=== PATIENT | female | born 1990 | race Caucasian/White ===

== ENCOUNTER 2017-06-30 01:41 | Day surgery (SDC) | payer BC ==
[~2017-06-30] VITALS: Ht 172.7 cm; Wt 79.4 kg
--- NOTE | 2017-06-30 01:46 | ER Report ---
History and Physical Time Seen By MD: 01:44 HPI/ROS CHIEF COMPLAINT: Abdominal pain HISTORY OF PRESENT ILLNESS: 26-year-old female presents ambulatory to the ER complaining of abdominal pain. Patient notes an episode of diarrhea, then she developed kind of migratory abdominal pain. She states it settled in the back in the right lower quadrant. Patient reports one episode of vomiting earlier yesterday. She's had nausea. She's had no fever or chills. She denies dysuria , frequency or hematuria. Patient has an IUD. Her past surgical history is significant for and a thumb repair. REVIEW OF SYSTEMS: Respiratory: No cough, no dyspnea. Cardiovascular: No chest pain, no palpitations. Gastrointestinal: As above Musculoskeletal: No back pain. Allergies: Coded Allergies: No Known Drug Allergies (Unverified , 06/30/17) Home Meds Active Scripts Hydrocodone Bit/Acetaminophen (NORCO 5-325 TABLET) 1 Each Tablet, 1-2 EACH PO Q4 -6H Y for PAIN, #30 TAB Prov:TONIE CHERRY MD 06/30/17 Reviewed Nurses Notes: Yes Old Medical Records Reviewed: Yes Constitutional Vital Sign - Last 24 Hours 06/30/17 06/30/17 06/30/17 06/30/17 01:48 01:48 02:11 02:26 Temp 97.9 Pulse 98 78 84 Resp 20 B/P (MAP) 133/76 133/76 (95) Pulse Ox 98 99 95 O2 Delivery Room Air 06/30/17 06/30/17 06/30/17 06/30/17 02:41 02:54 02:56 03:00 Pulse 102 98 B/P (MAP) 98/89 (92) 111/73 (86) Pulse Ox 97 97 06/30/17 06/30/17 06/30/17 06/30/17 03:05 03:20 03:30 03:35 Pulse 100 89 96 B/P (MAP) 116/74 (88) Pulse Ox 95 95 98 06/30/17 06/30/17 06/30/17 03:50 04:00 04:05 Pulse 97 98 B/P (MAP) 116/74 (88) Pulse Ox 97 97 Physical Exam General Appearance: The patient is alert, has no immediate need for airway protection and no current signs of toxicity. Vital signs stable, moderate distress Eyes: Pupils equal and round no injection. Respiratory: Chest is non tender, lungs are clear to auscultation. Cardiac: regular rate and rhythm Gastrointestinal: Abdomen is soft, moderate right lower quadrant tenderness with guarding and trace rebound, no masses, bowel sounds normal. Musculoskeletal: Neck: Neck is supple and non tender. Extremities have full range of motion and are non tender. Skin: No rashes or lesions. [DIFFERENTIAL DIAGNOSIS: After history and physical exam differential diagnosis was considered for] [ ] Medical Decision Making Data Points Result Diagram: 06/30/17 0155 06/30/17 0155 Laboratory Hematology Test 06/30/17 01:45 06/30/17 01:55 Urine Color Straw Urine Clarity Clear Urine pH 5.0 pH (4.8-9.5) Urine Specific Conroy 1.006 Urine Protein Negative mg/dL (NEGATIVE) Urine Glucose (UA) Negative mg/dL (NEGATIVE) Urine Ketones Negative mg/dL (NEGATIVE) Urine Blood Negative (NEGATIVE) Urine Nitrite Negative (NEGATIVE) Urine Bilirubin Negative (NEGATIVE) Urine Urobilinogen Negative mg/dL (0.2-1.9) Urine Leukocyte Esterase Negative (NEGATIVE) Urine RBC None /HPF (0-2/HPF) Urine WBC None /HPF (0-5/HPF) Urine Squamous Epithelial Cells Moderate /LPF (</=FEW) Urine Bacteria Negative /HPF (NONE-FEW) Urine Mucus None /HPF (NONE-FEW) Red Blood Count 5.00 M/uL (4.17-5.56) Mean Corpuscular Volume 86.6 fL (80.0-96.0) Mean Corpuscular Hemoglobin 30.1 pg (26.0-33.0) Mean Corpuscular Hemoglobin Concent 34.7 g/dL (32.0-36.0) Red Cell Distribution Width 13.3 % (11.5-14.5) Mean Platelet Volume 8.2 fL (7.2-11.1) Neutrophils (%) (Auto) 80.9 % (39.4-72.5) Lymphocytes (%) (Auto) 9.9 % (17.6-49.6) Monocytes (%) (Auto) 8.0 % (4.1-12.4) Eosinophils (%) (Auto) 0.8 % (0.4-6.7) Basophils (%) (Auto) 0.4 % (0.3-1.4) Nucleated RBC Relative Count (auto) 0.2 /100WBC Neutrophils # (Auto) 13.1 K/uL (2.0-7.4) Lymphocytes # (Auto) 1.6 K/uL (1.3-3.6) Monocytes # (Auto) 1.3 K/uL (0.3-1.0) Eosinophils # (Auto) 0.1 K/uL (0.0-0.5) Basophils # (Auto) 0.1 K/uL (0.0-0.1) Nucleated RBC Absolute Count (auto) 0.03 K/uL Sodium Level 139 mmol/L (137-145) Potassium Level 3.3 mmol/L (3.5-5.0) Chloride Level 102 mmol/L (98-107) Carbon Dioxide Level 22 mmol/L (22-31) Blood Urea Nitrogen 10 mg/dl (7-18) Creatinine 0.70 mg/dl (0.52-1.04) Glomerular Filtration Rate Calc > 60.0 Random Glucose 101 mg/dl (75-110) Calcium Level 9.1 mg/dl (8.4-10.2) Total Bilirubin 0.5 mg/dl (0.2-1.3) Aspartate Amino Transf (AST/SGOT) 23 U/L (0-35) Alanine Aminotransferase (ALT/SGPT) 49 U/L (0-56) Alkaline Phosphatase 93 U/L (0-126) Total Protein 7.6 gm/dl (6.3-8.2) Albumin 4.1 g/dl (3.5-5.0) Amylase Level 112 U/L (0-110) Lipase 53 U/L (23-300) Human Chorionic Gonadotropin, Qual Negative (NEGATIVE) Chemistry Test 06/30/17 01:45 06/30/17 01:55 Urine Color Straw Urine Clarity Clear Urine pH 5.0 pH (4.8-9.5) Urine Specific Conroy 1.006 Urine Protein Negative mg/dL (NEGATIVE) Urine Glucose (UA) Negative mg/dL (NEGATIVE) Urine Ketones Negative mg/dL (NEGATIVE) Urine Blood Negative (NEGATIVE) Urine Nitrite Negative (NEGATIVE) Urine Bilirubin Negative (NEGATIVE) Urine Urobilinogen Negative mg/dL (0.2-1.9) Urine Leukocyte Esterase Negative (NEGATIVE) Urine RBC None /HPF (0-2/HPF) Urine WBC None /HPF (0-5/HPF) Urine Squamous Epithelial Cells Moderate /LPF (</=FEW) Urine Bacteria Negative /HPF (NONE-FEW) Urine Mucus None /HPF (NONE-FEW) White Blood Count 16.1 k/uL (4.5-11.0) Red Blood Count 5.00 M/uL (4.17-5.56) Hemoglobin 15.0 g/dL (12.0-16.0) Hematocrit 43.3 % (34.0-47.0) Mean Corpuscular Volume 86.6 fL (80.0-96.0) Mean Corpuscular Hemoglobin 30.1 pg (26.0-33.0) Mean Corpuscular Hemoglobin Concent 34.7 g/dL (32.0-36.0) Red Cell Distribution Width 13.3 % (11.5-14.5) Platelet Count 255 K/uL (150-450) Mean Platelet Volume 8.2 fL (7.2-11.1) Neutrophils (%) (Auto) 80.9 % (39.4-72.5) Lymphocytes (%) (Auto) 9.9 % (17.6-49.6) Monocytes (%) (Auto) 8.0 % (4.1-12.4) Eosinophils (%) (Auto) 0.8 % (0.4-6.7) Basophils (%) (Auto) 0.4 % (0.3-1.4) Nucleated RBC Relative Count (auto) 0.2 /100WBC Neutrophils # (Auto) 13.1 K/uL (2.0-7.4) Lymphocytes # (Auto) 1.6 K/uL (1.3-3.6) Monocytes # (Auto) 1.3 K/uL (0.3-1.0) Eosinophils # (Auto) 0.1 K/uL (0.0-0.5) Basophils # (Auto) 0.1 K/uL (0.0-0.1) Nucleated RBC Absolute Count (auto) 0.03 K/uL Glomerular Filtration Rate Calc > 60.0 Calcium Level 9.1 mg/dl (8.4-10.2) Total Bilirubin 0.5 mg/dl (0.2-1.3) Aspartate Amino Transf (AST/SGOT) 23 U/L (0-35) Alanine Aminotransferase (ALT/SGPT) 49 U/L (0-56) Alkaline Phosphatase 93 U/L (0-126) Total Protein 7.6 gm/dl (6.3-8.2) Albumin 4.1 g/dl (3.5-5.0) Amylase Level 112 U/L (0-110) Lipase 53 U/L (23-300) Human Chorionic Gonadotropin, Qual Negative (NEGATIVE) Urinalysis Test 06/30/17 01:45 Urine Color Straw Urine Clarity Clear Urine pH 5.0 pH (4.8-9.5) Urine Specific Conroy 1.006 Urine Protein Negative mg/dL (NEGATIVE) Urine Glucose (UA) Negative mg/dL (NEGATIVE) Urine Ketones Negative mg/dL (NEGATIVE) Urine Blood Negative (NEGATIVE) Urine Nitrite Negative (NEGATIVE) Urine Bilirubin Negative (NEGATIVE) Urine Urobilinogen Negative mg/dL (0.2-1.9) Urine Leukocyte Esterase Negative (NEGATIVE) Urine RBC None /HPF (0-2/HPF) Urine WBC None /HPF (0-5/HPF) Urine Squamous Epithelial Cells Moderate /LPF (</=FEW) Urine Bacteria Negative /HPF (NONE-FEW) Urine Mucus None /HPF (NONE-FEW) EKG/Imaging Imaging Results: CT scan of the abdomen and pelvis with IV contrast was obtained. The results of the study are COMPUTED TOMOGRAPHY ABDOMEN AND PELVIS WITH INTRAVENOUS CONTRAST DATE OF EXAM: 06/30/2017 2:27 AM INDICATION: Abdominal pain and elevated white blood cells. Rule out appendicitis.. COMPARISON: None. TECHNIQUE: Contrast enhanced abdomen and pelvis CT performed during the injection of 75 ml of Isovue 370. Sagittal and coronal reconstructions were performed. One of the following dose optimization techniques was utilized in the performance of this exam: Automated exposure control; adjustment of the mA and/or kV according to the patient's size; or use of an iterative reconstruction technique. Specific details can be referenced in the facility's radiology CT exam operational policy. FINDINGS: Lung bases: Minimal atelectasis. Liver and hepatic vasculature: Normal. Gallbladder and bile ducts: Normal. Spleen: Normal. Pancreas: Normal. Adrenals: Normal. Kidneys, ureters and bladder: Normal. Retroperitoneum and aorta: Normal caliber aorta. No adenopathy. GI tract, mesentery and peritoneum: The appendix is mildly dilated and inflamed , measuring 8 mm in diameter. It contains multiple appendicoliths. There is minimal adjacent inflammatory change. No evidence of obstruction in the remainder of the bowel. No pneumatosis or pneumoperitoneum. Trace free fluid in the pelvis may be reactive or physiologic. Uterus and adnexa: IUD in place, otherwise unremarkable. Bones and soft tissues: No acute abnormality or suspicious lesion. IMPRESSION: Uncomplicated early acute appendicitis. The study was read by the radiologist. I viewed the images myself on the PACS system. ED Course/Re-evaluation Clinical Indication for ER IV: Hydration, IV Access ED Course Patient was admitted to an examination room. H&P was done. The differential diagnosis was considered. On clinical examination. Patient has right lower quadrant tenderness and elevated white blood cell count. A CT scan of the abdomen and pelvis with contrast is ordered. It shows an early uncomplicated appendicitis. General surgery on-call is contacted. 06/30/2017 3:27:47 am case discussed with Dr. Baer, general surgery on-call , who will come see the patient at 0430 AM and take her to the OR. Decision to Disposition Date: Jun 30, 2017 Decision to Disposition Time: 03:27 Depart Departure Latest Vital Signs Vital Signs Date Time Temp Pulse Resp B/P (MAP) Pulse Ox O2 Delivery O2 Flow Rate FiO2 06/30/17 04:05 98 97 06/30/17 04:00 116/74 (88) 06/30/17 01:48 97.9 20 Room Air Impression: Primary Impression: Acute appendicitis Condition: Improved Disposition: ADMIT FROM ER TO OR New Scripts Hydrocodone Bit/Acetaminophen (NORCO 5-325 TABLET) 1 Each Tablet 1-2 EACH PO Q4-6H Y for PAIN, #30 TAB Prov: TONIE CHERRY MD 06/30/17 Problem Qualifiers Primary Impression: Acute appendicitis Acute appendicitis type: with localized peritonitis Qualified Codes: K35.3 - Acute appendicitis with localized peritonitis SPENCER CARRERA DO Jun 30, 2017 01:46
[2017-06-30] MEDS ORDERED: NS(*) 0.9% 1000 ML BAG 1,000 ML IV ONE (01:54)
[2017-06-30] MEDS ORDERED: KETOROLAC 30 MG/ML VIAL IVP ONE (01:55)
[2017-06-30] MEDS ORDERED: ONDANSETRON 4 MG/2 ML VIAL IVP ONE (01:55)
[2017-06-30] MEDS ORDERED: fentaNYL CITR 100 MCG/2 ML AMP IVP ONE (01:55)
[2017-06-30 02:07] LABS: PLATELET COUNT, AUTOMATED 255 K/uL (150-450)
[2017-06-30] MEDS ORDERED: IOPAMIDOL 76% 75 ML INFUS BTL 75 ML ONE (02:44)
--- NOTE | 2017-06-30 03:27 | RADIOLOGY IMAGING REPORT ---
[place] [facility] [place] NAME: Main Cummings : 1990 MR: [id number] V: [id number] EXAM DATE: ORDERING PHYSICIAN: SPENCER CARRERA TECHNOLOGIST: Location: [facility] Patient: Main Cummings : 1990 Visit/Account:[id number] Date of Sevice: 06/30/2017 COMPUTED TOMOGRAPHY ABDOMEN AND PELVIS WITH INTRAVENOUS CONTRAST DATE OF EXAM: 06/30/2017 2:27 AM INDICATION: Abdominal pain and elevated white blood cells. Rule out appendicitis.. COMPARISON: None. TECHNIQUE: Contrast enhanced abdomen and pelvis CT performed during the injection of 75 ml of Isovue 370. Sagittal and coronal reconstructions were performed. One of the following dose optimization te chniques was utilized in the performance of this exam: Automated exposure control; adjustment of the mA and/or kV according to the patient's size; or use of an iterative reconstruction technique. Spec [facility] details can be referenced in the facility's radiology CT exam operational policy. FINDINGS: Lung bases: Minimal atelectasis. Liver and hepatic vasculature: Normal. Gallbladder and bile ducts: Normal. Spleen: Normal. Pancreas: Normal. Adrenals: Normal. Kidneys, ureters and bladder: Normal. Retroperitoneum and aorta: Normal caliber aorta. No adenopathy. GI tract, mesentery and peritoneum: The appendix is mildly dilated and inflamed, measuring 8 mm in d iameter. It contains multiple appendicoliths. There is minimal adjacent inflammatory change. No ev idence of obstruction in the remainder of the bowel. No pneumatosis or pneumoperitoneum. Trace free fluid in the pelvis may be reactive or physiologic. Uterus and adnexa: IUD in place, otherwise unremarkable. Bones and soft tissues: No acute abnormality or suspicious lesion. IMPRESSION: Uncomplicated early acute appendicitis. Dr. Richter discussed this case with SPENCER CARRERA on 06/30/2017 3:22 AM. Report Dictated By: George Richter MD at 06/30/2017 3:16 AM Report E-Signed By: George Richter MD at 06/30/2017 3:23 AM [id number]
[2017-06-30] MEDS ORDERED: PIPERACILLIN/TAZO*3.375GM VIAL 3.375 GM in NS(*) 0.9% 100 ML ADDVANT BAG 100 ML IVPB ONE (03:30)
[2017-06-30] MEDS ORDERED: NORMOSOL R SOLN(*) 1000 ML BAG 1,000 ML IV PRN (04:00)
[2017-06-30] MEDS ORDERED: BUPIV/EPI 0.25% 1:200,000 50ML INFIL ONE (04:28)
[2017-06-30] MEDS ORDERED: fentaNYL CITR 250 MCG/5 ML AMP ONE (04:35)
[2017-06-30] MEDS ORDERED: PROPOFOL EMUL(*) 10MG/ML 20 ML 20 ML ONE (04:36)
[2017-06-30] MEDS ORDERED: DEXAMETHASONE SOD PHOS 10MG/ML ONE (04:36)
[2017-06-30] MEDS ORDERED: LIDOCAINE MPF 1% 5 ML VIAL ONE (04:36)
[2017-06-30] MEDS ORDERED: ONDANSETRON 4 MG/2 ML VIAL ONE (04:36)
[2017-06-30] MEDS ORDERED: MIDAZOLAM 2 MG/2 ML VIAL ONE (04:40)
[2017-06-30] MEDS ORDERED: SUGAMMADEX SOD 200 MG/2 ML SDV ONE (04:42)
[2017-06-30] MEDS ORDERED: HALOPERIDOL LACT 5 MG/ML VIAL IM ONE (04:47)
[2017-06-30] MEDS ORDERED: ROCURONIUM BROM 10 MG/ML 5 ML ONE (05:00)
--- NOTE | 2017-06-30 05:01 | Gen Surgery History & Physical ---
History of Present Illness Chief Complaint Abdominal pain History of Present Illness 26 yo F with ~1 week of abdominal pain, N/V. Pain worsened yesterday afternoon and localized to the RLQ. Pt with associated chills, no fever. Evaluated in ED and found to have leukocytosis of 16K and CT scan showing dilated appendix with inflammation and multiple appendicoliths. Only prior surgery is 2 years ago. History Home Meds No Active Prescriptions or Reported Meds Allergies: Coded Allergies: No Known Drug Allergies (Unverified , 06/30/17) Review of Systems Constitutional: Chills Gastrointestinal: Nausea, Vomiting, Abdominal Pain Exam General Appearance: Alert, Awake, No Acute Distress Neuro: No Gross deficits ENT: Moist Mucous Membranes Cardiovascular: Normal Rhythm & Peripheral Pulses Respiratory: No Respiratory Distress GI: Other (Tender in RLQ with localized peritonitis. ) Extremities: Soft and Non Tender, Warm Integumentary: Skin Intact without Lesion / Mass Medical Decision Making Data Points Result Diagram: 06/30/17 0155 06/30/17 0155 Assessment and Plan Problems: (1) Acute appendicitis Status: Acute Assessment & Plan: Acute appendicitis: - abx given in ED - NPO, IVF - consent for lap appy - To OR this AM Venous Thromboembolism Antithrombotics Is Pt On Any Antithrombotics?: No Problem Qualifiers (1) Acute appendicitis: Acute appendicitis type: with localized peritonitis Qualified Codes: K35.3 - Acute appendicitis with localized peritonitis TONIE CHERRY MD Jun 30, 2017 05:01
--- NOTE | 2017-06-30 05:47 | Short(Outpt) Discharge Summary ---
Discharge Summary Reason for Hosp/Final Diag: (1) Acute appendicitis Status: Acute Hospital Course & Plan: Acute appendicitis: - abx given in ED - NPO, IVF - consent for lap appy - To OR this AM Departure Discharge to: Home Discharge Instructions Home Meds No Active Prescriptions or Reported Meds Diet: Regular Activity: As Tolerated Special Instructions: May shower 24 hours after surgery. Do not drive will taking prescription pain medications. F/u with Dr. Geller in 7-10 days for post-op. Problem Qualifiers (1) Acute appendicitis: Acute appendicitis type: with localized peritonitis Qualified Codes: K35.3 - Acute appendicitis with localized peritonitis TONIE CHERRY MD Jun 30, 2017 05:47
[2017-06-30] MEDS ORDERED: HYDR-4309 PO (05:48)
--- NOTE | 2017-06-30 05:50 | Post Operative Note ---
Operative Note - ENT Operative Day Date: Jun 30, 2017 Time: 05:48 Physicians Surgeon: Tonie Cherry MD Diagnosis Pre-Op Diagnosis: Acute appendicitis Post-Op Diagnosis: same Procedure Findings: AAST grade I appendicitis Procedure(s): Laparoscopic appendectomy Specimen Removed:(Maybe N/A): Appendix Fluids Estimated Blood Loss: 10 TONIE HCERRY MD Jun 30, 2017 05:50
[2017-06-30] MEDS ORDERED: fentaNYL CITR 100 MCG/2 ML AMP ONE (06:12)
[2017-06-30 06:45] VITALS: BP 108/62
[2017-06-30] MEDS ORDERED: APAP/HYDROCODONE 325/5 TAB ONE ×2 (06:45→07:02)
[2017-06-30 06:57] VITALS: BP 98/60
[2017-06-30 06:58] VITALS: BP 91/53
--- NOTE | 2017-06-30 08:53 | OPERATIVE REPORT 1 ---
EVENT DATE: June 30, 2017 SURGEON: Miriam Storm MD ANESTHESIOLOGIST: John Rosario MD ANESTHESIA: cloth covered helmet puller: None. PREOPERATIVE DIAGNOSIS Acute appendicitis. POSTOPERATIVE DIAGNOSIS Acute appendicitis. PROCEDURE PERFORMED Laparoscopic appendectomy. FINDINGS AAST grade 1 appendicitis. ESTIMATED BLOOD LOSS 10 mL. SPECIMENS Appendix. COMPLICATIONS None. DESCRIPTION OF PROCEDURE After informed consent was obtained, the patient was brought to the operating room, where general anesthesia was induced. Preoperative antibiotics were given in the ER, and the patient voided just prior to procedure. After time out , the abdomen was prepped and draped in the normal sterile fashion. A 5 mm infraumbilical incision was made. The umbilical stalk was grasped, and the abdomen was entered with a Veress needle as confirmed by the saline meniscus test. The abdomen was insufflated to 15 mmHg. The abdomen was then bluntly entered with an Optiview trocar. There was no evidence of Veress needle or trocar injury. Two additional trocars were then placed, first a 10 in the left lower quadrant and a 5 in the suprapubic space. The patient was placed in Trendelenburg with the right side up. The appendix was identified and appeared to be dilated and inflamed. There was no evidence of perforation. A mesenteric window was created at the base of the appendix and the appendix was transected with an Endo JACKELIN stapling device. The mesoappendix was then similarly transected with a JACKELIN stapling device. The appendix was placed in an Endo catch bag and was removed through the 12 mm trocar site. The right pelvis was then inspected. A small amount of murky fluid was aspirated. The appendiceal staple lines were inspected and found to be hemostatic. Subsequently the 10 mm trocar was removed, and the fascia was closed with an #0- Vicryl suture and a Christiano-Weber device. The skin was then closed with 4-0 Monocryl. Dermabond was applied, and the patient was then awakened and extubated without complications, subsequently transferred to PACU in stable condition. SOHEILA
== END 2017-06-30 06:45 | disposition home or self-care (01) ==
LOC: ER 02:00 → OR 04:27
PROVIDERS: ATTEND Surgery
DX: J35.3 Hypertrophy of tonsils with hypertrophy of adenoids (principal)
CPT/HCPCS: 44970; 74177; 81001; 82150; 83690; 84703; 85025; 88304; 96361; 96365; 96375; 99285; J1100; J1630; J1885; J2001; J2250; J2405; J2543; J2704; J3010; J7030; J7050; Q9967; 82040; 82247; 82310; 82374; 82435; 82565; 82947; 84075; 84132; 84155; 84295; 84450; 84460; 84520

== ENCOUNTER 2018-06-30 02:54 | Emergency (ER) | payer OTHER ==
[~2018-06-30 02:54] MED LIST: HYDR-653 PO
[2018-06-30] MEDS ORDERED: PROMETHAZINE 25 MG/ML 1 ML AMP IVP ONE (03:10)
[2018-06-30] MEDS ORDERED: diphenhydrAMINE 50 MG/ML VIAL IVP ONE (03:10)
[2018-06-30] MEDS ORDERED: NS(*) 0.9% 1000 ML BAG 1,000 ML IV ONE (03:10)
--- NOTE | 2018-06-30 03:10 | ER Report ---
History and Physical Time Seen By MD: 03:00 Hx. of Stated Complaint: patient states that she has had a head ache since around noon 06/29; states she left work early because of it and that tonight it woke her up HPI/ROS CHIEF COMPLAINT: Headache HISTORY OF PRESENT ILLNESS: This is a 27-year-old female. She is having headache around noon, went home. Took some [id number] medications easily up a little bit. Tonight it woke her up much more severely. Having nausea and photophobia. No other neurologic symptoms. She is had one other headache in the past but does not usually get headaches. This is more severe than usual. No fevers or chills. No numbness or tingling or weakness. Allergies: Coded Allergies: No Known Drug Allergies (Unverified , 06/30/17) Home Meds Active Scripts Promethazine Hcl (PROMETHAZINE HCL) 25 Mg Tablet, 25 MG PO Q8H PRN for PAIN/HEADACHE, #20 TAB 0 Refills Prov:MAZIN KELLEY MD 06/30/18 Ketorolac Tromethamine (KETOROLAC TROMETHAMINE) 10 Mg Tab, 10 MG PO Q6H PRN for PAIN, #12 TAB 0 Refills Prov:MAZIN KELLEY MD 06/30/18 Reviewed Nurses Notes: Yes Smoking Status: Never Smoker Hx Substance Use Disorder: No Hx Alcohol Use: No Constitutional Vital Sign - Last 24 Hours 06/30/18 06/30/18 06/30/18 06/30/18 02:54 03:00 03:04 03:24 Temp 97.9 Pulse ??? 72 82 Resp 17 B/P (MAP) 116/64 116/64 (81) Pulse Ox 95 96 O2 Delivery Room Air 06/30/18 06/30/18 06/30/18 06/30/18 03:30 03:54 04:00 04:30 Pulse ??? 69 B/P (MAP) 110/73 (85) 107/70 (82) 111/72 (85) Pulse Ox 95 06/30/18 06/30/18 04:30 05:00 Pulse 82 B/P (MAP) 111/72 (85) 104/63 (77) Pulse Ox 93 Physical Exam General Appearance: The patient is alert. No acute distress. Non-toxic in appearance. Eyes: Pupils are equal, round. Reactive to light. No pallor, injection or icterus. Extraocular movements are intact. Photophobia ENT: Mucous membranes are moist. Normal oral mucosa. Posterior oropharynx is normal. Neck: Supple and non tender. Respiratory: Lungs are clear to auscultation. Cardiovascular: Regular rate and rhythm. No murmurs, gallops or rubs. Gastrointestinal: Abdomen is soft and non tender. Nondistended. Neurological: Alert and oriented x3. Cranial nerves II through XII show no acute deficits on my exam. No focal neurologic deficits in the extremities. Skin: Warm and dry. Musculoskeletal: No pain in cervical spine or neck area or back DIFFERENTIAL DIAGNOSIS: After history and physical exam, differential diagnosis was considered for headache including but not limited to subarachnoid hemorrhage, migraine headache, tension headache and infectious causes such as meningitis, pharyngitis and sinusitis. Medical Decision Making Data Points Result Diagram: 06/30/18 0307 06/30/18 0307 Laboratory Hematology Test 06/30/18 03:07 Red Blood Count 4.96 M/uL (4.17-5.56) Mean Corpuscular Volume 91.2 fL (80.0-96.0) Mean Corpuscular Hemoglobin 31.0 pg (26.0-33.0) Mean Corpuscular Hemoglobin Concent 33.9 g/dL (32.0-36.0) Red Cell Distribution Width 14.1 % (11.5-14.5) Mean Platelet Volume 8.5 fL (7.2-11.1) Neutrophils (%) (Auto) 39.5 % (39.4-72.5) Lymphocytes (%) (Auto) 49.1 % (17.6-49.6) Monocytes (%) (Auto) 8.9 % (4.1-12.4) Eosinophils (%) (Auto) 1.8 % (0.4-6.7) Basophils (%) (Auto) 0.7 % (0.3-1.4) Nucleated RBC Relative Count (auto) 0.2 /100WBC Neutrophils # (Auto) 2.9 K/uL (2.0-7.4) Lymphocytes # (Auto) 3.6 K/uL (1.3-3.6) Monocytes # (Auto) 0.6 K/uL (0.3-1.0) Eosinophils # (Auto) 0.1 K/uL (0.0-0.5) Basophils # (Auto) 0.0 K/uL (0.0-0.1) Nucleated RBC Absolute Count (auto) 0.02 K/uL Erythrocyte Sedimentation Rate < 1 mm/HOUR (0-20) Sodium Level 136 mmol/L (137-145) Potassium Level 3.7 mmol/L (3.5-5.0) Chloride Level 103 mmol/L (98-107) Carbon Dioxide Level 26 mmol/L (22-31) Blood Urea Nitrogen 17 mg/dl (7-18) Creatinine 0.70 mg/dl (0.52-1.04) Glomerular Filtration Rate Calc > 60.0 Random Glucose 100 mg/dl (75-110) Calcium Level 8.8 mg/dl (8.4-10.2) Total Bilirubin 0.3 mg/dl (0.2-1.3) Aspartate Amino Transf (AST/SGOT) 20 U/L (0-35) Alanine Aminotransferase (ALT/SGPT) 28 U/L (0-56) Alkaline Phosphatase 38 U/L (0-126) C-Reactive Protein < 0.5 mg/dl (<1.0) Total Protein 6.7 g/dl (6.3-8.2) Albumin 4.1 g/dl (3.5-5.0) Human Chorionic Gonadotropin, Qual Negative (NEGATIVE) Chemistry Test 06/30/18 03:07 White Blood Count 7.3 k/uL (4.5-11.0) Red Blood Count 4.96 M/uL (4.17-5.56) Hemoglobin 15.4 g/dL (12.0-16.0) Hematocrit 45.3 % (34.0-47.0) Mean Corpuscular Volume 91.2 fL (80.0-96.0) Mean Corpuscular Hemoglobin 31.0 pg (26.0-33.0) Mean Corpuscular Hemoglobin Concent 33.9 g/dL (32.0-36.0) Red Cell Distribution Width 14.1 % (11.5-14.5) Platelet Count 229 K/uL (150-450) Mean Platelet Volume 8.5 fL (7.2-11.1) Neutrophils (%) (Auto) 39.5 % (39.4-72.5) Lymphocytes (%) (Auto) 49.1 % (17.6-49.6) Monocytes (%) (Auto) 8.9 % (4.1-12.4) Eosinophils (%) (Auto) 1.8 % (0.4-6.7) Basophils (%) (Auto) 0.7 % (0.3-1.4) Nucleated RBC Relative Count (auto) 0.2 /100WBC Neutrophils # (Auto) 2.9 K/uL (2.0-7.4) Lymphocytes # (Auto) 3.6 K/uL (1.3-3.6) Monocytes # (Auto) 0.6 K/uL (0.3-1.0) Eosinophils # (Auto) 0.1 K/uL (0.0-0.5) Basophils # (Auto) 0.0 K/uL (0.0-0.1) Nucleated RBC Absolute Count (auto) 0.02 K/uL Erythrocyte Sedimentation Rate < 1 mm/HOUR (0-20) Glomerular Filtration Rate Calc > 60.0 Calcium Level 8.8 mg/dl (8.4-10.2) Total Bilirubin 0.3 mg/dl (0.2-1.3) Aspartate Amino Transf (AST/SGOT) 20 U/L (0-35) Alanine Aminotransferase (ALT/SGPT) 28 U/L (0-56) Alkaline Phosphatase 38 U/L (0-126) C-Reactive Protein < 0.5 mg/dl (<1.0) Total Protein 6.7 g/dl (6.3-8.2) Albumin 4.1 g/dl (3.5-5.0) Human Chorionic Gonadotropin, Qual Negative (NEGATIVE) EKG/Imaging Imaging Head CT scan without contrast COMPARISONS: None ADDITIONAL PERTINENT HISTORY: Headache TECHNIQUE: Multiple axial images were obtained from the skull base to the vertex without IV contrast. One of the following dose optimization techniques was utilized in the performance of this exam: Automated exposure control; adjustment of the mA and/or kV according to the patient's size; or use of an iterative reconstruction technique. Specific details can be referenced in the facility's radiology CT exam operational policy. FINDINGS: Midline shift: Negative Ventricles: Negative Brain parenchyma: Negative Extra-axial spaces: Negative Intracranial vasculature: Negative Osseous structures: Negative Paranasal sinuses and mastoid air cells: Negative Surrounding soft tissues and orbits: Negative IMPRESSION: Normal head CT scan without contrast. ED Course/Re-evaluation Clinical Indication for ER IV: Hydration, IV Access ED Course Labs unremarkable. CT scan negative. Much improvement with Toradol, Phenergan, and Benadryl with a liter of normal saline. Decision to Disposition Date: Jun 30, 2018 Decision to Disposition Time: 04:55 Depart Departure Latest Vital Signs Vital Signs Date Time Temp Pulse Resp B/P (MAP) Pulse Ox O2 Delivery O2 Flow Rate FiO2 06/30/18 05:00 82 104/63 (77) 93 06/30/18 03:00 97.9 17 Room Air Impression: Primary Impression: Migraine headache Condition: Improved Disposition: HOME OR SELF-CARE New Scripts Promethazine Hcl (PROMETHAZINE HCL) 25 Mg Tablet 25 MG PO Q8H PRN for PAIN/HEADACHE, #20 TAB 0 Refills Prov: MAZIN KELLEY MD 06/30/18 Ketorolac Tromethamine (KETOROLAC TROMETHAMINE) 10 Mg Tab 10 MG PO Q6H PRN for PAIN, #12 TAB 0 Refills Prov: MAZIN KELLEY MD 06/30/18 Patient Instructions: Migraine Headache (ED) Additional Instructions: You can try taking the same medicines we gave tonight at home if you have further headaches. Phenergan 25mg, one every 8 hours as needed for nausea or headache. Toradoll 10mg, one every 6 hours as needed for headache. Benadryl 25mg one every 8 hours with the Phenergan. Problem Qualifiers Primary Impression: Migraine headache Migraine type: unspecified Status migrainosus presence: without status migrainosus Intractability: not intractable Qualified Codes: G43.909 - Migraine, unspecified, not intractable, without status migrainosus MAZIN KELLEY MD Jun 30, 2018 03:11
[2018-06-30 03:24] LABS: PLATELET COUNT, AUTOMATED 229 K/uL (150-450)
--- NOTE | 2018-06-30 04:11 | RADIOLOGY IMAGING REPORT ---
FACILITY: [facility] PATIENT NAME: Main Link : 1990 MR: [id number] V: [id number] EXAM DATE: ORDERING PHYSICIAN: MAZIN KELLEY TECHNOLOGIST: Location: [facility] [place] Patient: Main Link : 1990 Visit/Account:[id number] Date of Sevice: 06/30/[address] scan without contrast COMPARISONS: None ADDITIONAL PERTINENT HISTORY: Headache TECHNIQUE: Multiple axial images were obtained from the skull base to the vertex without IV contrast . One of the following dose optimization techniques was utilized in the performance of this exam: Aut omated exposure control; adjustment of the mA and/or kV according to the patient's size; or use of an iterative reconstruction technique. Specific details can be referenced in the facility's radiology CT exam operational policy. FINDINGS: Midline shift: Negative Ventricles: Negative Brain parenchyma: Negative Extra-axial spaces: Negative Intracranial vasculature: Negative Osseous structures: Negative Paranasal sinuses and mastoid air cells: Negative Surrounding soft tissues and orbits: Negative IMPRESSION: Normal head CT scan without contrast. Report Dictated By: Reji Story MD at 06/30/2018 4:06 AM Report E-Signed By: Reji Story MD at 06/30/2018 4:07 AM WSN:[id number]
[2018-06-30] MEDS ORDERED: KET10 PO (04:56)
[2018-06-30] MEDS ORDERED: PROM-110 PO (04:56)
[2018-06-30 05:00] VITALS: BP 104/63
== END 2018-06-30 05:08 | disposition home or self-care (01) ==
LOC: ER 02:55
DX: G43.909 Migraine, unspecified, not intractable, without status migrainosus (principal)
CPT/HCPCS: 70450; 84703; 85025; 85651; 86140; 96361; 96374; 96375; 99284; J1200; J2550; J7030; 82040; 82247; 82310; 82374; 82435; 82565; 82947; 84075; 84132; 84155; 84295; 84450; 84460; 84520

== ENCOUNTER → 2018-08-07 | Outpatient (CLI) | payer OTHER ==
[~2018-08-07] MED LIST changes: +KET10 PO; +PROM-110 PO
== END ==
LOC: LAB 10:52
PROVIDERS: ATTEND Student in an Organized Health Care Education/Training Program
DX: Z32.00 Encounter for pregnancy test, result unknown (principal)
CPT/HCPCS: 36415; 84702

== ENCOUNTER → 2018-08-10 | Outpatient (CLI) | payer OTHER ==
--- NOTE | 2018-08-10 16:44 | RADIOLOGY IMAGING REPORT ---
FACILITY: [facility] PATIENT NAME: Main Link : 1990 MR: [id number] V: [id number] EXAM DATE: ORDERING PHYSICIAN: GORGE MILAN TECHNOLOGIST: [facility] Patient: Main Link : 1990 Visit/Account:[id number] Date of Sevice: 08/10/2018 Transvaginal OB Ultrasound HISTORY: RLQ PAIN - APPROX 5 WKS COMPARISON: None. TECHNIQUE: Transvaginal FINDINGS: Gestational sac: There is a single tiny fluid collection within the endometrium measuring 2 x 1 x 1.6 mm yielding a mean sac diameter of 15 mm. If this is a gestational sac the measurements would be co nsistent with a four week four day gestation. Yolk sac: Not visualized Embryo: Not visualized Embryonic cardiac activity: Not visualized Estimated gestational age by LMP of 07/13/2018: Four weeks and one day Ultrasound age: Four weeks and four days by sac Subchorionic hemorrhage: None visualized. Uterus: Gravid, otherwise unremarkable. Maternal ovaries: There is a 3.3 x 3.7 x 3.2 cm cyst in the right ovary. Adnexa: Negative Free pelvic fluid: None. IMPRESSION: There is a tiny fluid collection within the endometrium. If this does represent a gestational sac me asurements would be consistent with a four week four day gestation however correlation with hCG level s and follow-up ultrasound recommended to assure in viable intrauterine . A pole is n ot identified There is a 3.3 x 3.7 x 3.2 cm cyst in the right ovary Report Dictated By: Maria Antonia Castro MD at 08/10/2018 4:35 PM Report E-Signed By: Maria Antonia Castro MD at 08/10/2018 4:41 PM WSN:[id number]
== END ==
LOC: US 15:33
PROVIDERS: ATTEND Student in an Organized Health Care Education/Training Program
DX: N83.202 Unspecified ovarian cyst, left side (principal); O26.891 Other specified pregnancy related conditions, first trimester
CPT/HCPCS: 76817

== ENCOUNTER → 2018-08-14 | Outpatient (CLI) | payer OTHER | LOC: LAB 16:05 | PROVIDERS: ATTEND Student in an Organized Health Care Education/Training Program | DX: O20.0 Threatened abortion (principal) | CPT/HCPCS: 36415; 84702 ==